=== PATIENT | male | born 1985 | race Two or more races ===

== ENCOUNTER 2017-02-20 11:01 | Emergency (ER) | payer SELFPAY ==
[~2017-02-20] VITALS: Ht 170.2 cm; Wt 70.3 kg
[2017-02-20 11:31] VITALS: BP 141/99
== END 2017-02-20 13:56 | disposition home or self-care (01) ==
LOC: ER 11:08
DX: S46.912A Strain of unspecified muscle, fascia and tendon at shoulder and upper arm level, left arm, initial encounter (principal); R07.9 Chest pain, unspecified; X50.0XXA Overexertion from strenuous movement or load, initial encounter; Y93.89 Activity, other specified; Y99.8 Other external cause status; Y92.511 Restaurant or cafe as the place of occurrence of the external cause
CPT/HCPCS: 73030; 93005